=== PATIENT | female | born 1985 | race Caucasian/White ===

== ENCOUNTER → 2017-05-15 | Outpatient (CLI) | payer BC ==
--- NOTE | 2017-05-16 07:55 | MRI ---
MRI lumbar spine Indication: Lower back pain Technique: Multisequence, multiplanar MR images of the number stones were obtained without IV contras t. Comparison: None Findings: Vertebral body heights/alignment and marrow signal are normal. No acute fracture, malalignm ent or suspicious osseous lesion is identified. The conus is normal in signal and caliber, terminatin g at L1-L2. The cauda equina is unremarkable. The imaged paraspinal soft tissues demonstrate no gross , unexpected findings. T12-L1: Mild disc desiccation. Otherwise, unremarkable. L1-L2, L2-L3: Unremarkable L3-L4: Mild facet arthropathy. Otherwise, unremarkable. L4-L5: Mild broad-based disk bulge results in mild canal as well as mild left and right lateral reces s stenosis. There is also mild left greater than right foraminal narrowing. L5-S1: Mild broad-based disk bulge and facet arthropathy results in mild bilateral foraminal narrowin g. There is no significant canal stenosis. Impression: Mild multilevel degenerative disc disease and facet arthropathy, most significant at L4-L5 and L5-S1, as detailed above. Reported By:
== END | disposition home or self-care (01) ==
LOC: RAD 16:38
PROVIDERS: ATTEND Internal Medicine
DX: M54.5 Low back pain (principal); M62.830 Muscle spasm of back; M51.37 Other intervertebral disc degeneration, lumbosacral region; M12.88 Other specific arthropathies, not elsewhere classified, other specified site
CPT/HCPCS: 72148